=== PATIENT | female | born 1940 | race Caucasian/White ===

== ENCOUNTER → 2025-03-31 | Outpatient (CLI) | payer OTHER ==
--- NOTE | 2025-03-31 13:32 | HMCIMG ---
BILATERAL BREAST ULTRASOUND: CLINICAL HISTORY: 84-year-old female with breast pain for diagnostic mammogram and ultrasound. Finding: Real-time examination of the both breasts demonstrates homogeneous echotexture throughout both the breasts without evidence of focal solid mass. The right breast at 3:00 there is a small cyst within 0.5 x 0.5 x 0.5 cm. The left breast between 2 and 3:00 there is a septated cyst measuring approximately 0.6 x 0.3 x 0.7 cm. 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 Both axillary region has benign-appearing lymph node on the right measures 0 7 x 0.58 cm. There is a lymph node seen also in the left axillary region measuring 0.3 x 0.6 x 1.2 cm. IMPRESSION: Fibrocystic changes with no scalp solid hypoechoic mass seen. I would recommend annual mammography with tomography CATEGORY 2: BENIGN FINDINGS Recommend monthly self breast exam as well as annual clinical examination. A negative x-ray should not delay biopsy if a dominant or clinically suspicious mass is present, since 8-10% of cancers are not identified by mammography. Dense breasts particularly, may obscure an underlying neoplasm. Some of these may be detected clinically and therefore, clinical examination is an essential part of breast evaluation.
--- NOTE | 2025-03-31 13:34 | HMCIMG ---
DIGITAL DIAGNOSTIC MAMMOGRAM Technique: The digital mammographic examination of lateral breasts in craniocaudal, mediolateral oblique views along with CAD was obtained. Ultrasound of both breasts were also obtained. History: This is a 84 years year-old female for diagnostic mammogram. Patient has had left breast biopsy in 1969 which was benign.. Patient has no family history of breast cancer. Patient complaining of bilateral breast pain. Reference:Baseline mammogram.. Breast composition: Breast composition C: The breasts are heterogeneously dense, which may obscure small masses. Finding: The digital mammographic examination of both breasts in craniocaudal and mediolateral oblique view along with CAD demonstrates to be moderately heterogeneously dense due to fibroglandular stromal elements. There is faint nodular density which ultrasound demonstrate to be fibrocystic changes. There is in the right axillary region near the tail there is a intramammary lymph node with fatty hilum. There are scattered benign macrocalcifications in both breasts.. There is no evidence of any dendritic mass, cluster microcalcification or architectural distortion. The retromammary fat appears to be normal. IMPRESSION: Fibrocystic disease No mass seen NO RADIOGRAPHIC EVIDENCE OF MALIGNANT CHANGES. WE WOULD RECOMMEND ANNUAL FOLLOW UP WITH TOMOSYNTHESIS UNLESS OTHERWISE CLINICALLY INDICATED. Also recommend annual bilateral breast ultrasound due to multinodular dense breasts FINAL ASSESSMENT: ACR: BI-RAD- 2. Benign: Also a negative assessment; finding(s) benign abnormalities. Management: Routine mammography screening. Likelihood of Cancer: Essentially 0% likelihood of malignancy. NOTE: IF A WORK-UP OF THIS PATIENT LEADS TO A BIOPSY, PLEASE FORWARD A COPY OF THE PATHOLOGY REPORT TO OUR OFFICE REQUIRED BY [facility] JUNE 02, 1994. A NEGATIVE MAMMOGRAM SHOULD NOT PRECLUDE BIOPSY OF A CLINICALLY PALPABLE SUSPICIOUS MASS, 10% OF BREAST CANCERS ARE MAMMOGRAPHICALLY OCCULT. THIS MAMMOGRAPHY FACILITY IS FULLY ACCREDITED BY THE [employer]OD AND [employer]UG [employer] (FDA). THANK YOU FOR THIS REFERRAL.
== END | disposition home or self-care (01) ==
LOC: RAH 10:35
PROVIDERS: ATTEND Family Medicine
DX: N60.12 Diffuse cystic mastopathy of left breast (principal); N60.11 Diffuse cystic mastopathy of right breast; R92.333 Mammographic heterogeneous density, bilateral breasts; N63.10 Unspecified lump in the right breast, unspecified quadrant; N63.20 Unspecified lump in the left breast, unspecified quadrant; N64.4 Mastodynia; R92.1 Mammographic calcification found on diagnostic imaging of breast
CPT/HCPCS: 77066